=== PATIENT | male | born 1970 | race Caucasian/White ===

== ENCOUNTER → 2022-02-03 | Outpatient (CLI) | payer BC ==
--- NOTE | 2022-02-08 08:37 | PE ---
EXAMINATION TYPE: PET CT fusion skull to thigh DATE OF EXAM: 02/03/2022 CLINICAL INDICATION:Male, 52 years old with history of R91.1 Lung Nodule; TECHNIQUE: Following the intravenous administration of 10.5 mCi of F-18 FDG, whole body images are performed from the skull base to the midthigh. Images are reviewed on the computer in the coronal, a xial, and sagittal planes. Reconstructed rotating images are created on independent workstation and reviewed on the computer. A non-contrast CT is performed in conjunction with the PET scan. Glucose level 129 mg/dL COMPARISON: CT None, PET/CT None, FINDINGS: Mediastinal SUV mean is 1.4 . Hepatic parenchyma SUV mean is 1.9. SKULL BASE AND NECK: No suspicious FDG activity. Mild FDG activity within the right neck lymph node max SUV 3.1 likely physiologic. CHEST, MEDIASTINUM, AND HILAR REGION: Right upper lobe pulmonary nodule measuring 10 mm with max SUV of 0.6. ABDOMEN AND PELVIS: No suspicious FDG activity. OSSEOUS STRUCTURES: No suspicious FDG activity. OTHER CT: Mild atherosclerosis of the arterial vasculature including the coronary arteries. Heart is mildly enlarged for size. IMPRESSION: No suspicious FDG activity within the pulmonary nodule or within this exam.
== END | disposition home or self-care (01) ==
LOC: RADPETMAIN 11:13
PROVIDERS: ATTEND Registered Nurse
DX: R91.1 Solitary pulmonary nodule (principal)
CPT/HCPCS: 78815; A9552

== ENCOUNTER → 2022-08-04 | Outpatient (CLI) | payer BC ==
--- NOTE | 2022-08-04 11:44 | CT ---
EXAMINATION TYPE: CT chest w con DATE OF EXAM: 08/04/2022 COMPARISON: PET/CT 02/02/2022 HISTORY: 52-year-old male R91.1, pulmonary nodule TECHNIQUE: Contiguous axial scanning of the chest after the administration of 70 mL of Isovue 300. C oronal/sagittal reconstructions performed. CT DLP: 756mGycm. Automatic exposure control utilized for a dose reduction. FINDINGS: Heart normal size without pericardial effusion. LAD and circumflex coronary calcifications are presen t. Borderline and ectatic ascending aorta 3.5 cm. Conventional arch vessel branching anatomy. Scattered nonenlarged mediastinal lymph nodes remain unchanged. No thoracic lymphadenopathy by CT siz e criteria. There is mild centrilobular emphysema. A 1 cm lateral right midlung pulmonary nodule remains unchange d from 6 months ago. Ongoing surveillance follow-up can be performed. An additional few scattered 2 to 3 mm pulmonary nodules in the bilateral lower lungs remain unchanged . Strandy scarring again noted at the left base. No consolidation or pleural effusion. No new pulmona ry nodules are seen. There is a tiny hiatal hernia. Visualized upper abdomen otherwise shows relatively diminished attenua tion of the hepatic parenchyma suggesting fatty infiltration. IMPRESSION: 1. COPD with mild emphysema. 2. A 1 cm right midlung pulmonary nodule remains stable for 6 months. Ongoing surveillance follow-up can be performed. Additional scattered 2 to 3 mm nodules particularly in the lower lungs are also unc hanged. 3. Incidental: LAD and circumflex coronary artery calcifications. Tiny hiatal hernia. Hepatic steatos is.
== END | disposition home or self-care (01) ==
LOC: RADCTMAIN 10:03
PROVIDERS: ATTEND Internal Medicine
DX: J43.2 Centrilobular emphysema (principal); I25.10 Atherosclerotic heart disease of native coronary artery without angina pectoris; K44.9 Diaphragmatic hernia without obstruction or gangrene; K76.0 Fatty (change of) liver, not elsewhere classified; R91.8 Other nonspecific abnormal finding of lung field
CPT/HCPCS: 71260; Q9967